=== PATIENT | female | born 1980 | race Caucasian/White ===

== ENCOUNTER → 2018-03-01 | Outpatient (CLI) | payer OTHER ==
[2018-03-01 08:27] LABS: ABSOLUTE BASOPHILS 0.1 thou/uL (0.0-0.2); ABSOLUTE EOSINOPHILS 0.1 thou/uL (0.0-0.7); ABSOLUTE LYMPHOCYTES 1.2 thou/uL (0.8-5.3); ABSOLUTE MONOCYTES 0.5 thou/uL (0.0-1.2); ABSOLUTE NEUTROPHILS 3.1 thou/uL (1.6-8.1); BASOPHILS 1.1 %; EOSINOPHILS 2.8 %; HEMATOCRIT 39.7 % (37.0-47.0); HEMOGLOBIN 13.5 gm/dL (12.0-15.0); LYMPHOCYTES 24.4 %; MCH 32.5 pg (26.0-34.0); MCHC 33.9 g/dL (28.0-37.0); MCV 95.7 fL (80.0-100.0); MONOCYTES 9.8 %; MPV 7.5 fl. (7.2-11.1); NUCLEATED RBCS 0 /100WBC; PLATELET COUNT* 284 thou/uL (150-400); POLYS 61.9 %; RBC 4.15 mil/uL (4.20-5.00); RDW-CV 12.2 % (10.5-14.5)
== END ==
LOC: M.LAB 08:11
DX: K43.9 Ventral hernia without obstruction or gangrene (principal); R23.8 Other skin changes

== ENCOUNTER 2019-02-09 08:23 | Emergency (ER) | payer OTHER ==
[~2019-02-09] VITALS: Ht 162.6 cm; Wt 61.7 kg
[2019-02-09] MEDS ORDERED: KEFLEX500 M1 PO (08:48)
[2019-02-09 08:51] VITALS: BP 123/69
== END 2019-02-09 08:51 | disposition home or self-care (01) ==
LOC: M.ERS 08:23
DX: L03.032 Cellulitis of left toe (principal); Z90.49 Acquired absence of other specified parts of digestive tract; Z90.10 Acquired absence of unspecified breast and nipple; Z86.018 Personal history of other benign neoplasm